=== PATIENT | female | born 1980 | race African-American/Black ===

== ENCOUNTER 2018-01-28 11:38 | Emergency (ER) | payer MEDICAID ==
[~2018-01-28] VITALS: Ht 170.2 cm; Wt 75.0 kg
[2018-01-28 12:10] VITALS: BP 131/91
== END 2018-01-28 15:46 | disposition home or self-care (01) ==
LOC: ER 13:30
DX: N60.01 Solitary cyst of right breast (principal); I10 Essential (primary) hypertension
CPT/HCPCS: 76641; 99284